=== PATIENT | male | born 1995 | race Caucasian/White ===

== ENCOUNTER 2020-03-14 18:06 | Emergency (ER) | payer OTHER ==
[~2020-03-14] VITALS: Ht 180.3 cm; Wt 100.0 kg
--- NOTE | 2020-03-14 18:44 | REP ---
INDICATION: trauma, medial pain COMPARISON: None. TECHNIQUE: Two views of the left clavicle. FINDINGS: No obvious fracture or dislocation. IMPRESSION: No obvious left clavicular fracture. <Electronically signed by Quentin Weber > 03/14/20 [id number]
[2020-03-14 19:09] VITALS: BP 118/78
== END 2020-03-14 19:12 | disposition home or self-care (01) ==
LOC: M ED 18:06
DX: S43.62XA Sprain of left sternoclavicular joint, initial encounter (principal); W00.0XXA Fall on same level due to ice and snow, initial encounter; Y92.019 Unspecified place in single-family (private) house as the place of occurrence of the external cause; Y93.9 Activity, unspecified; Y99.9 Unspecified external cause status; Z88.1 Allergy status to other antibiotic agents

== ENCOUNTER → 2025-01-16 | Outpatient (CLI) | payer OTHER | LOC: M PLALAB 16:13 | PROVIDERS: ATTEND Obstetrics & Gynecology | DX: Z31.440 Encounter of male for testing for genetic disease carrier status for procreative management (principal) ==